=== PATIENT | female | born 1960 ===

== ENCOUNTER 2019-01-28 00:30 | Emergency (ER) | payer OTHER, BC ==
--- OUTSIDE RECORDS SUMMARY | 2019-01-28 00:38 | XMS REPORT | Summary of Care ---
:1960 Author Organization [facility] Address [address] [address] Care Team Providers Name Role Phone Akila Marie Primary Care Provider Reason for Visit Reason Comments Sick sore throat, chills and achy Other pre travel visit Encounter Details Date Type Department Care Team Description 01/27/2019 Office Visit [place] [facility] Akila Marie MD Travel advice encounter (Primary Dx); Medicine [address] Traveler's diarrhea [address] [place] [address] [place] [address] [phone] Allergies Active Allergy Reactions Severity Noted Date Comments Sulfa Antibiotics Anaphylaxis 11/01/2009 documented as of this encounter (statuses as of 01/27/2019) Medications Medication Sig Dispensed Refills Start Date End Date Status loratadine-pseudoephed Take 1 Tab 0 Active rine (CLARITIN-D 24 H) by mouth 10-240 MG Oral TABLET NEEDED. SR 24 HR cholecalciferol Take 1 Tab 30 Tab 0 12/14/2017 Active (VITAMIN D) 1000 units by mouth Oral Tab DAILY. Cyanocobalamin Take 1 Each 0 Active (VITAMIN B12 PO) by mouth DAILY. Atovaquone-Proguanil Take 1 Tab 65 Tab 0 01/27/2019 Active HCl 250-100 MG Oral by mouth TabIndications: Travel DAILY. advice encounter azithromycin Take 2 6 Tab 0 01/27/2019 01/31/2019 Active (ZITHROMAX) 250 MG pills on Oral TabIndications: the first Traveler's diarrhea day and 1 pill each day for 4 days Naproxen Sodium (ALEVE Take 1 Each 0 01/27/2019 Discontinued PO) by mouth DAILY NEEDED. documented as of this encounter (statuses as of 01/27/2019) Active Problems Problem Noted Date Vitamin D deficiency 12/14/2017 Chronic bilateral low back pain without sciatica 09/04/2017 BMI 29.0-29.9,adult Overview: This patient's BMI has been calculated and is above average, and BMI management plan is completed. General patient education discussion including: obesity- related excess mortality This patient's BMI has been calculated and is above average, and BMI management plan is completed. General patient education discussion including: obesity-related excess mortality documented as of this encounter (statuses as of 01/27/2019) Resolved Problems Problem Noted Date Resolved Date Seasonal allergies 11/01/2009 08/06/2012 Overview: Dandelion- allergy shots in the past conjunctvitis / rhinitis documented as of this encounter (statuses as of 01/27/2019) Immunizations Name Administration Dates Next Due Influenza (IM) Preservative Free 12/03/2017, 11/15/2011, 12/09/2010 Influenza Vaccine Whole 11/15/2009 Influenza Virus Vaccine Pres Free 6-35 11/15/2009 Months MENINGOCOCCAL CONJUGATE VACCINE 11/19/2009 Polio - Inactivated Vaccine 11/19/2009 TDAP Vaccine 2011 TYPHOID VACCINE 11/23/2011, 11/19/2009 YELLOW FEVER VACCINE 07/08/2008 documented as of this encounter Social History Tobacco Use Types Packs/Day Years Used Date Never Smoker Smokeless Tobacco: Never Used Alcohol Use Drinks/Week oz/Week Comments No 0 Standard drinks or equivalent 0.0 Sex Assigned at Date Recorded Not on file Job Start Date Occupation Industry Not on file Not on file Not on file Travel History Travel Start Travel End No recent travel history available. documented as of this encounter Last Filed Vital Signs Vital Sign Reading Time Taken Comments Blood Pressure 112/78 01/27/2019 4:06 PM EST Pulse 92 01/27/2019 4:06 PM EST Temperature 36.6 01/27/2019 4:06 PM EST C (97.8 F) Respiratory Rate - - Oxygen Saturation 99% 01/27/2019 4:06 PM EST Inhaled Oxygen Concentration - - Weight 86.2 kg (190 lb) 01/27/2019 4:06 PM EST Height 172.7 cm (5' 8") 01/27/2019 4:06 PM EST Body Mass Index 28.89 01/27/2019 4:06 PM EST documented in this encounter Progress Notes Akila Marie MD - 01/27/2019 4:00 PM EST NAME:Roopa Lynch 1960: 1960 ENC Date: 01/27/2019 CC: Chief Complaint Patient presents with Sick sore throat, chills and achy Other pre travel visit Roopa Lynch is a 58-y.o. female 1. Will be in [place] x 3 weeks - And then going to [facility] - In one week - 3 weeks- Current Outpatient Medications Medication Sig Atovaquone-Proguanil HCl 250-100 MG Oral Tab Take 1 Tab by mouth DAILY. azithromycin (ZITHROMAX) 250 MG Oral Tab Take 2 pills on the first day and 1 pill each day for 4 days cholecalciferol (VITAMIN D) 1000 units Oral Tab Take 1 Tab by mouth DAILY. Cyanocobalamin (VITAMIN B12 PO) Take 1 Each by mouth DAILY. loratadine-pseudoephedrine (CLARITIN-D 24 H) 10-240 MG Oral TABLET SR 24 HR Take 1 Tab by mouth NEEDED. No current facility-administered medications for this visit. Patient Active Problem List Diagnosis Date Noted Vitamin D deficiency 12/14/2017 Chronic bilateral low back pain without sciatica 09/04/2017 BMI 29.0-29.9,adult This patient's BMI has been calculated and is above average, and BMI management plan is completed. General patient education discussion including: obesity-related excess mortality This patient's BMI has been calculated and is above average, and BMI management plan is completed. General patient education discussion including: obesity- related excess mortality Family History Problem Relation Age of Onset Heart Mother CHF Mother Asthma Sister Allergies Child Asthma Child No cardiopulmonary symptoms No upper or lower GI complaints No urinary tract symptoms. No bruising/ bleeding. No neurological complaints . No insomnia.+ . Social History Tobacco Use Smoking status: Never Smoker Smokeless tobacco: Never Used Substance Use Topics Alcohol use: No Alcohol/week: 0.0 standard drinks Drug use: No OBJECTIVE: BP 112/78 | Pulse 92 | Temp 97.8 F (36.6 C) | Ht 5' 8" (1.727 m) | Wt 190 lb (86.2 kg) | SpO2 99% | BMI 28.89 kg/m . Heent oroph - negative Ears - unremarkable - Neck no JVD, thyromegaly or bruit Lungs Clear CV rrr Abd soft, nontender, no organomegaly Ext no edema; no lesions; pulses intact Neuro: intellect intact ; motor including gait unremarkable A/P ICD-9-CM ICD-10-CM 1. Travel advice encounter V65.49 Z71.84 Atovaquone-Proguanil HCl 250-100 MG Oral Tab 2. Traveler's diarrhea 009.2 A09 azithromycin (ZITHROMAX) 250 MG Oral Tab Treatment for malaria And for travellers diarrhea There are no Patient Instructions on file for this visit. AUTHOR: Akila Marie MD 16:44 01/27/2019 documented in this encounter Plan of Treatment Health Maintenance Due Date Last Done Comments INFLUENZA VACCINE (#1) 2018 12/03/2017, 11/15/2011, 12/09/2010, Additional history exists DIABETES SCREENING 04/20/2019 04/19/2018, 05/09/2017, 02/10/2016, Additional history exists DEPRESSION SCREENING 08/15/2019 08/14/2018 ZOSTER IMMUNIZATION SERIES 01/28/2020 Postponed from (1 of 2) 2008 (Vaccine not available) DTaP/Tdap/Td Vaccines (2 - 04/13/2021 2011 Tdap) LIPID DISORDER SCREENING 05/09/2022 05/09/2017, 05/05/2015, 05/11/2014, Additional history exists Colonoscopy 06/25/2028 06/25/2018, 04/26/2008 MENINGOCOCCAL VACCINE IMM Aged Out 11/19/2009 No longer eligible based on patient's age to complete this topic HEPATITIS A IMMUNIZATION Aged Out No longer eligible SERIES based on patient's age to complete this topic HPV IMMUNIZATION SERIES Aged Out No longer eligible based on patient's age to complete this topic PNEUMOCOCCAL 0-64 YRS Aged Out No longer eligible based on patient's age to complete this topic documented as of this encounter Results Not on filedocumented in this encounter Visit Diagnoses Diagnosis Travel advice encounter Traveler's diarrhea Infectious diarrhea documented in this encounter (Home) [address] [phone] [place], [place] (Work) [address] documented as of this encounter Advance Directives Type Date Recorded Patient Methods And Procedures Analyst Explanation Advance Directives 08/05/2018 9:58 AM Health Care Proxy
--- NOTE | 2019-01-28 02:25 | ED ---
Complex/Multi-Sys Presentation - HPI Summary HPI Summary: 58 year old F [place] [facility] accompanied by complains of worsening sore throat initial onset 01/26 PM. Took a Osiel aspirin after initial onset with some relief. Was able to sleep 01/26 PM. Was seen by her primary care provider 01/27 during which she developed chills, dizziness, worsening sore throat, productive cough, hemoptysis. Developed myalgia, headache, decreased appetite hours prior to arrival. Only ate soup and oatmeal and drank water. No chest pain or shortness of breath. No fever but reports feeling warm and measured temperature 99F when she is normally 97F. Did not take any OTC medications to treat her symptoms. The patient rates the pain 0/10 in severity. Symptoms aggravated by nothing. Symptoms alleviated by nothing. Takes vitamin D during the winter time. Allergies reviewed. No smoking, alcohol, drugs. - History Of Current Complaint Chief Complaint: EDGeneral Time Seen by Provider: 01/28/19 02:17 Hx Obtained From: Patient Onset/Duration: Lasting Days, Still Present Timing: Constant Severity Currently: None Aggravating Factor(s): Nothing Alleviating Factor(s): Nothing - Allergies/Home Medications Allergies/Adverse Reactions: Allergies Allergy/AdvReac Type Severity Reaction Status Date / Time Sulfa (Sulfonamide Allergy Rash Verified 01/28/19 04:00 Antibiotics) PMH/Surg Hx/FS Hx/Imm Hx Endocrine/Hematology History: Denies: Hx Diabetes, Hx Thyroid Disease Cardiovascular History: Denies: Hx Hypertension Respiratory History: Denies: Hx Asthma, Hx Chronic Obstructive Pulmonary Disease (COPD) - Surgical History Surgery Procedure, Year, and Place: . hernia x2 Infectious Disease History: No Infectious Disease History: Denies: Traveled Outside the [place] in Last 30 Days - Family History Known Family History: Positive: Cardiac Disease - CHF mother - Social History Alcohol Use: None Substance Use Type: Reports: None Hx Tobacco Use: No Smoking Status (MU): Never Smoked Tobacco Review of Systems - ROS Summary Review of Systems Summary: Home Medications Medication Instructions Recorded Confirmed Type Cholecalciferol TAB* [Vitamin D 1,000 unit PO DAILY 05/14/13 05/14/13 History TAB*] Haescgxpoiz-Elubx-Pe W/APAP 1 liq PO PRN 05/14/13 05/14/13 History [Nyquil] Positive: Chills. Negative: Fever Positive: Sore Throat Negative: Chest Pain Positive: Cough. Negative: Shortness Of Breath Positive: Other - decreased appetite, hemoptysis Positive: Myalgia Neurological: Other - Dizziness Positive: Headache All Other Systems Reviewed And Are Negative: Yes Physical Exam - Summary Physical Exam Summary: General: Well-developed, Well-nourished FEMALE. No acute distress. HEENT: Normocephalic, Atraumatic. Eyes: Conjuctiva normal, PERRL. Oropharynx: Slightly erythematous Neck: Soft, FROM, (-) lymphadenopathy, (-) thyromegaly, (-) JVD. Cardiovascular: Normal sinus rhythm, (-) murmur. Lungs: Clear to auscultation bilaterally (-) wheezes, (-) rales, (-) rhonchi. Abdomen: Soft, non-tender, non-distended, (-) organomegaly, normal bowel sounds. Back: (-) CVA tenderness Extremities: No edema. Skin: Warm, dry, (-) rash. Neuro: Alert and oriented x3, no focal deficits. Psychiatric: Mood normal, affect normal. Triage Information Reviewed: Yes Vital Signs On Initial Exam: Initial Vitals Temp Pulse Resp BP Pulse Ox 98.5 F 97 15 158/96 99 01/28/19 00:31 01/28/19 00:31 01/28/19 00:31 01/28/19 00:31 01/28/19 00:31 Vital Signs Reviewed: Yes Procedures - Sedation Patient Received Moderate/Deep Sedation with Procedure: No Diagnostics - Vital Signs Vital Signs Temp Pulse Resp BP Pulse Ox 01/28/19 00:31 98.5 F 97 15 158/96 99 - Laboratory Lab Statement: Any lab studies that have been ordered have been reviewed, and results considered in the medical decision making process. - Radiology CXR Radiology Interpretation Completed By: ED Physician Summary of Radiographic Findings: NO ACUTE PROCESS. PENDING OFFICIAL REPORT Re-Evaluation - Re-Evaluation First Eval Re-Evaluation Time: 03:48 Change: Improved Comment: I have discussed results with the patient and symptoms have resolved. Discussed symptoms that warrant immediate return to ED. Complex Multi-Symp Course/Dx Course Of Treatment: 58-year-old female presents with multiple acute symptoms. Including chills, aches. Hemoptysis. Patient was negative for flu. Negative rapid strep. Chest x-ray normal. Patient was given ibuprofen. Had significant improvement in her symptoms. Advised plenty of fluids and rest. Ibuprofen as needed. Follow up PCP. Follow-up sooner for any worsening symptoms. - Diagnoses Provider Diagnoses: Viral URI Discharge ED - Sign-Out/Discharge Documenting (check all that apply): Patient Departure - Discharge Plan Condition: Stable Disposition: HOME Patient Education Materials: Upper Respiratory Infection (ED) Referrals: Aikla Marie MD [Primary Care Provider] - 3 Days Additional Instructions: Please follow up with your primary care physician within 3 days. Please return to Emergency Department for any new or worsening symptoms. - Billing Disposition and Condition Condition: STABLE Disposition: Home - Attestation Statements Document Initiated by Yemi: Yes Documenting Scribe: Estephanie Richey Provider For Whom Yemi is Documenting (Include Credential): Sravanthi Robles MD Scribe Attestation: Estephanie Espinosa, scribed for Sravanthi Robles MD on 01/28/19 at 0617. Scribe Documentation Reviewed: Yes Provider Attestation: The documentation as recorded by the Estephanie majano accurately reflects the service I personally performed and the decisions made by me, Sravanthi Robles MD Status of Scribe Document: Viewed
[2019-01-28] MEDS ORDERED: Ibuprofen TAB* 400 MG PO ONE (02:35)
[2019-01-28 03:10] LABS: Rapid Strep Molecular Negative (Negative)
[2019-01-28 03:15] LABS: Influenza A Molecular NEGATIVE (Negative); Influenza B Molecular NEGATIVE (Negative)
[2019-01-28 03:55] VITALS: BP 107/71
== END 2019-01-28 03:50 | disposition home or self-care (01) ==
LOC: ED 00:30
DX: J06.9 Acute upper respiratory infection, unspecified (principal); Z88.2 Allergy status to sulfonamides
CPT/HCPCS: 71045; 87651; 99282; A9270-GY